=== PATIENT | female | born 1995 | race Caucasian/White ===

== ENCOUNTER 2019-04-29 16:26 | Emergency (ER) | payer SELFPAY | END 2019-04-29 19:15 | disposition home or self-care (01) | PROVIDERS: Family Provider Family Medicine | DX: O26.891 Other specified pregnancy related conditions, first trimester (principal); N93.9 Abnormal uterine and vaginal bleeding, unspecified; Z3A.01 Less than 8 weeks gestation of pregnancy; O99.331 Smoking (tobacco) complicating pregnancy, first trimester; F17.290 Nicotine dependence, other tobacco product, uncomplicated | CPT/HCPCS: 36415; 76815; 76817; 80053; 81003; 84702; 85025; 86901; 99281 ==

== ENCOUNTER 2019-08-29 15:55 | Outpatient (CLI) | payer MEDICAID, SELFPAY | END 2019-08-29 16:30 | disposition home or self-care (01) | LOC: OPOB 15:57 → OBGYN 16:42 | PROVIDERS: Family Provider Family Medicine; PCP Family Medicine; Visit Provider Family Medicine | DX: O36.8190 Decreased fetal movements, unspecified trimester, not applicable or unspecified (principal); Z3A.00 Weeks of gestation of pregnancy not specified | CPT/HCPCS: 99211 ==

== ENCOUNTER 2019-09-28 01:03 | Outpatient (CLI) | payer MEDICAID, SELFPAY ==
[2019-09-28 01:27] VITALS: BP 127/85; PULSE 109; RESP 18; TEMP 37.2
[2019-09-28 02:30] VITALS: BMI 45.3
[2019-09-28 03:20] LABS: Glucose Urine UA Norm (Normal); Protein Urine Trace (Negative); Urine Appearance Hazy (CLEAR); Urine Color Yellow (Yellow); pH Urine 6 (5-7)
[2019-09-28 03:21] LABS: Add Urine Microscopic? YES; Bilirubin Urine 1+ (NEGATIVE); Blood Urine Neg (Negative); Ketones Urine 1+ (Negative); Leukocyte Esterase Urine 1+ (Negative); Nitrate Urine Negative (Negative); Urobilinogen Urine 4 mg/dL (Negative)
[2019-09-28 03:22] LABS: RBC Urine 0-4 /hpf (0-2)
[2019-09-28 03:23] LABS: Amorphous Sediment Urine 1+; Bacteria Urine 2+; Squamous Epithelial Cell Urine 25-40 (0-5)
[2019-09-28 03:24] LABS: Add Urine Culture? No
[2019-09-28 04:09] VITALS: BP 127/64; PULSE 93; RESP 18; TEMP 36.6
== END 2019-09-28 04:24 | disposition home or self-care (01) ==
LOC: OPOB 01:05 → OBGYN 04:19
PROVIDERS: Family Provider Family Medicine; PCP Family Medicine; Visit Provider Family Medicine
DX: O26.899 Other specified pregnancy related conditions, unspecified trimester (principal); Z3A.00 Weeks of gestation of pregnancy not specified; R10.9 Unspecified abdominal pain
CPT/HCPCS: 81001; 99211

== ENCOUNTER 2019-10-24 17:57 | Outpatient (CLI) | payer MEDICAID, SELFPAY ==
[2019-10-24] VITALS (12 sets, daily range): BP systolic 0–145; BP diastolic 0–81; PULSE 93–120; RESP 16–18; TEMP 36.6; BMI 44.9
[2019-10-24] MEDS: acetaminophen 500 mg Tablet 1000 MG PO (19:38)
[2019-10-24] MEDS: promethazine 25 mg Tablet PO (19:39)
[2019-10-24 20:24] LABS: Specific Gravity, Urine 1.015 (1.005-1.030); Urine Appearance Hazy (CLEAR); Urine Color Yellow (Yellow); pH Urine 6 (5-7)
[2019-10-24 20:25] LABS: Add Urine Microscopic? YES; Bilirubin Urine Neg (NEGATIVE); Blood Urine 2+ (Negative); Glucose Urine UA Norm (Normal); Ketones Urine 2+ (Negative); Leukocyte Esterase Urine 2+ (Negative); Nitrate Urine Negative (Negative); Protein Urine Neg (Negative); RBC Urine 15-25 /hpf (0-2); Urobilinogen Urine 1 mg/dL (Negative)
[2019-10-24 20:26] LABS: Add Urine Culture? No; Bacteria Urine 2+; Squamous Epithelial Cell Urine 25-40 (0-5)
== END 2019-10-24 20:40 | disposition home or self-care (01) ==
LOC: OPOB 18:09 → OBGYN 20:33
PROVIDERS: Family Provider Family Medicine; PCP Family Medicine; Visit Provider Family Medicine
DX: O26.899 Other specified pregnancy related conditions, unspecified trimester (principal); Z3A.00 Weeks of gestation of pregnancy not specified; R11.0 Nausea
CPT/HCPCS: 59025; 81001; 99211; Q0169

== ENCOUNTER 2019-12-20 05:36 | Outpatient (CLI) | payer MEDICAID, SELFPAY ==
[2019-12-20] VITALS (9 sets, daily range): BP systolic 0–154; BP diastolic 0–90; PULSE 66–70; TEMP 36.7; BMI 49.9
--- NOTE | 2019-12-20 06:32 | PC.NURSE ---
[facility]
[2019-12-20 07:29] LABS: Add Urine Culture? No; Add Urine Microscopic? YES; Bacteria Urine 1+; Bilirubin Urine Neg (NEGATIVE); Blood Urine Neg (Negative); Glucose Urine UA Norm (Normal); Ketones Urine Negative (Negative); Leukocyte Esterase Urine Trace (Negative); Mucus Urine 1+; Nitrate Urine Negative (Negative); Protein Urine Neg (Negative); RBC Urine 0-4 /hpf (0-2); Specific Gravity, Urine 1.015 (1.005-1.030); Squamous Epithelial Cell Urine 25-40 (0-5); Urine Appearance SL Hazy (CLEAR); Urine Color Yellow (Yellow); Urobilinogen Urine 1 mg/dL (Negative); pH Urine 6.5 (5-7)
== END 2019-12-20 07:53 | disposition home or self-care (01) ==
LOC: OPOB 05:37 → OBGYN 05:38
PROVIDERS: Family Provider Family Medicine; PCP Family Medicine; Visit Provider Family Medicine
DX: O26.899 Other specified pregnancy related conditions, unspecified trimester (principal); Z3A.00 Weeks of gestation of pregnancy not specified; R10.9 Unspecified abdominal pain
CPT/HCPCS: 59025; 81001; 99211

== ENCOUNTER 2019-12-22 19:41 | Inpatient (IN) | payer MEDICAID, SELFPAY ==
[2019-12-22] VITALS (25 sets, daily range): BP systolic 0–158; BP diastolic 0–94; PULSE 66–92; RESP 16–18; TEMP 36.7–37; BMI 48.9
[2019-12-22 17:09] LABS: Nitrazine Paper, PH Negative
[2019-12-22] MEDS: morphine 4 mg/mL SDV 1 mL 8 MG IM (17:35)
[2019-12-22] MEDS: promethazine 25 mg/mL SDV 1 mL IM (17:36)
[2019-12-22 18:22] LABS: Urine Creatinine 205 mg/dL (28-217)
[2019-12-22 18:23] LABS: Urine Protein Random 41 mg/dL
[2019-12-22] MEDS: miSOPROStol 100 mcg tablet 25 MCG VAGINAL (20:41)
[2019-12-22] MEDS: lactated ringers 1,000 ML 999 ML IV (23:52)
[2019-12-22 23:56] LABS: Basophils % 0.2 %; Eosinophils % 0.2 %; Hemoglobin 12.2 g/dL (11.5-15.3); Lymphocytes # 1.3 10^3/uL (0.8-4.8); Lymphocytes % 10.8 %; Mean Corpuscular HGB Conc 31.3 g/dL (30.0-36.0); Mean Corpuscular Hemoglobin 25.5 pg (28.0-34.0); Mean Corpuscular Volume 81.6 fL (81-99); Mean Platelet Volume 13.6 fL (7.4-10.4); Monocytes # 0.5 10^3/uL (0.2-0.9); Monocytes % 4.2 %; Neutrophils # 10.47 10^3/uL (1.8-7.7); Neutrophils % 84.3 %; Nucleated Red Blood Cells % 0 %; Platelet Count 235 10^3/cmm (130-400); Red Blood Count 4.78 10^6/uL (4.1-5.3); Red Cell Distribution Width 14.6 % (12.1-15.1); White Blood Count 12.4 10^3/uL (4.0-10.0)
[2019-12-23] VITALS (120 sets, daily range): BP systolic 0–224; BP diastolic 0–124; PULSE 59–144; RESP 16–20; TEMP 36.8–37.2; O2SAT 90–99
[2019-12-23] MEDS: fentaNYL 50 mcg/mL INJ 2mL IVP (00:18)
--- NOTE | 2019-12-23 01:22 | ANES.PREANE2 ---
Pre-Anesthetic Assessment Pre-Anesthetic Assessment: Height/Weight: Height 1.63 m Weight 129.274 kg Temp Pulse Resp BP Pulse Ox 98.0 F 86 17 199/92 98 12/22/19 17:21 12/23/19 01:20 12/22/19 18:14 12/23/19 01:20 12/23/19 01:14 Preop Diagnosis: Labor Pain Proposed Procedure: MARQUES Was Beta Daniel taken within 24 hours: N/A Last Intake: 22:30 Exam: Pre-Anes Outpt Exam: alert, oriented x 3, clear to auscultation bilaterally and regular rate & rhythm Airway: Submandibular: WNL Cervical ROM: WNL MP: 2 Dentition: Full History/ROS: No significant history except as noted and No significant complaints Pulmonary: Pulmonary: None reported CV/HEM: CV/HEM: None reported : : None reported Hepatic: Hepatic: None reported GI: GI: GERD Comments: TUMS Metabolic: Metabolic: Morbid obesity Musc/skel: Musc/skel: None reported Neuropsych: Neuropsych: Anxiety Anesthetic Plan: ASA status: 2 Anesthesia: Anesthesia Evaluation and Regional (specify below) Risk of > 500 ml blood loss (7ml/kg in children): No Meds/Allergies Current Medications: Current Medications Generic Name Dose Route Start Last Admin Trade Name Freq PRN Reason Stop Dose Admin Fentanyl 25 - 100 mcg 12/22/19 19:43 12/23/19 00:18 Sublimaze IVP 25 mcg Q1H PRN Administration SEVERE PAIN Misoprostol 25 mcg 12/22/19 19:45 12/22/19 20:41 Cytotec VAGINAL 12/23/19 03:46 25 mcg Q4H DE Administration PFSH Anesthesia Female Reproductive History: : 1 Data Anesthesia CBC & Chem 7: 12/22/19 20:45 Other Labs: Laboratory Results - last 48 hr 12/22/19 12/22/19 17:30 20:45 WBC 12.4 H RBC 4.78 Hgb 12.2 Hct 39.0 MCV 81.6 MCH 25.5 L MCHC 31.3 RDW 14.6 Plt Count 235 MPV 13.6 H Neut % (Auto) 84.3 Lymph % (Auto) 10.8 [place] % (Auto) 4.2 Eos % (Auto) 0.2 Baso % (Auto) 0.2 Neut # (Auto) 10.47 H Lymph # (Auto) 1.3 [place] # (Auto) 0.5 Eos # (Auto) 0.0 Baso # (Auto) 0.0 Nucleated RBC % (auto) 0 Nucleated RBCs # 0.0 U Random Total Protein 41 Urine Creatinine 205 Protein/Creatinin Ratio 0.20 Cardiac Studies: No Data to Display
--- NOTE | 2019-12-23 01:24 | ANES.PROC ---
Anesthesia Procedures Procedure/Date: 12/23/19 Epidural: Time Out Performed: Yes Consents Signed: Procedure Consent Consent: requested by attending/covering physician, from patient, risks and benefits reviewed and patient agrees to proceed Lumbar Level: L3-L4 Epidural position: sitting Epidural procedure: sterile prep of area, 1% lidocaine to numb the area, 18 g needle, negative for paresthesia passed, test dose given, 1.5% xylocaine 1:200k epi, 0.2% Ropivacaine bolus ml, placed PCEA, no systemic response, sterile dressing applied, L.U.D. no apparent complications and 0.2% Ropiavacaine @ mls/hr Additional Comments: JUANY at 8cm. Ropiv 0.2% 6cc and Fent 100 mcg bolus. Pt tolerated well.
[2019-12-23] MEDS: miSOPROStol 100 mcg tablet 25 MCG VAGINAL (02:57)
[2019-12-23] MEDS: ondansetron 2 mg/ML SDV 2 mL 4 MG IVP (06:21)
[2019-12-23] MEDS: dextrose 5%-lactated ringers 1,000 ML 125 ML IV ×2 (07:47→15:51)
--- NOTE | 2019-12-23 07:49 | P.ANES_ITS ---
Anesthesia Procedures Procedure/Date: 12/23/19 Epidural: Time Out Performed: Yes Consents Signed: Procedure Consent and NPO Consent Consent: requested by attending/covering physician, from patient, patient agrees to proceed and emergency procedure Lumbar Level: L3-L4 Epidural position: sitting Epidural procedure: sterile prep of area, 1% lido damaso to numb the area, 18 g needle, negative for paresthesia passed, neg for paresthesia, test dose given, 1.5% xylocaine 1:200k epi (5 cc), placed PCEA, no systemic response, sterile dressing applied, L.U.D. no apparent complications and 0.2% Ropiavacaine @ mls/hr (13) Additional Comments: Patient's epidural stopped providing pain relief overnight. Severe pain with contractions with minimal improvement after bupi 0.25% 9 cc bolus (divided dose). Patient elected to replace epidural. JUANY at 5.5 cm, threaded to 11 cm. 5 cc test dose and 5 cc bolus from pump produced a decrease in pain of contraction from a 10 down to a 5 or 4 and patient reported return of warm feeling in her bottom and legs.
[2019-12-23] MEDS: oxytocin 30 UNIT/500 ML BAG IV (12:52)
[2019-12-23] MEDS: miSOPROStol 200 mcg Tablet 800 MCG PR (16:44)
--- NOTE | 2019-12-23 17:04 | PM.DELIVERY ---
Delivery Note: Date of delivery: December 23, 2019 Delivery: DELIVERY: The patient progressed to complete without difficulty. She delivered a female with a weight of 8 pounds 2 ounces with Apgars of 5, 7. The baby was delivered from the BEBA position. After the delivery of the head, the baby was noted to have shoulder dystocia. Saeed was performed. Suprapubic pressure was placed. I then performed a wood screw maneuver and was able to deliver the baby. Approximate time of shoulder dystocia was about a minute. The baby was then completely delivered and placed on the mother's abdomen. The cord was then immediately clamped and cut. There was a body cord x1. There was no meconium, initially, but the infant did have a bowel movement shortly after delivery. The placenta and 3 vessel cord were delivered intact shortly thereafter. The patient did have several gushes of blood, and I elected to place Cytotec 800 mcg per rectum. The perineum and vaginal vault were carefully examined. A posterior midline second-degree vaginal tear was noted. It was repaired in usual fashion with 3-0 Vicryl. Both the mother and the baby were in stable condition. A&P Assessment and plan (1) 40 weeks gestation of : As long as the baby does well, anticipate routine care and probable discharge tomorrow evening. Status: Acute (2) Shoulder dystocia, delivered: Status: Acute (3) Vaginal delivery: Status: Acute Coding Level of Care Code Acute Dimmer Board Operator for Chg Fwd Diagnoses 40 weeks gestation of Z3A.40 Shoulder dystocia, delivered O66.0 Vaginal delivery O80
[2019-12-23] MEDS: docusate sodium 100 mg Capsule PO (18:06)
[2019-12-23] MEDS: HYDROcodone-acetaminophen 5-325 mg Tablet PO (18:06)
[2019-12-23] MEDS: lanolin oint 7 gm 1 APPLIC TOPICAL (18:07)
[2019-12-23] MEDS: benzocaine-menthol 78 gm Canister 1 SPRAY TOPICAL (18:07)
--- NOTE | 2019-12-23 18:50 | PC.NURSE ---
Pt and all belongings transferred to room 204-2 per wheelchair.
[2019-12-24 00:19] VITALS: BP 148/91; PULSE 85; RESP 16
[2019-12-24 02:19] VITALS: BP 134/90; PULSE 69; RESP 18; O2SAT 100
[2019-12-24] MEDS: HYDROcodone-acetaminophen 5-325 mg Tablet PO (02:38)
[2019-12-24 05:33] LABS: Hematocrit 34.8 % (37.0-47.0); Hemoglobin 11.1 g/dL (11.5-15.3); Mean Corpuscular HGB Conc 31.9 g/dL (30.0-36.0); Mean Corpuscular Hemoglobin 26.4 pg (28.0-34.0); Mean Corpuscular Volume 82.9 fL (81-99); Mean Platelet Volume 13.3 fL (7.4-10.4); Platelet Count 209 10^3/cmm (130-400); Red Cell Distribution Width 14.9 % (12.1-15.1); White Blood Count 15.5 10^3/uL (4.0-10.0)
--- NOTE | 2019-12-24 06:49 | P.DS_ITS ---
Discharge Providers CHIEF CLERK SHELTER Date of Admission: 12/22/19 19:41 Date of Discharge: 12/24/19 Attending Provider at Admission: Ranjith Garcia MD Attending Provider at Discharge: Ranjith Garcia MD Primary Care Provider: Jesusita Fontanez MD Diagnoses at Discharge Discharge Diagnosis (1) 40 weeks gestation of : Status: Acute (2) Shoulder dystocia, delivered: Status: Acute (3) Vaginal delivery: Status: Acute Reason for Visit Reason for Visit: Abdominal pain Hospital Course Discharge Summary: The patient is a 24-year-old 1 para female who presented to the hospital in active labor. She progressed to complete, and had a vaginal delivery of an . Shoulder dystocia did occur. But the baby and mother did fine. she has done well. Her pain is been well controlled. Her bleeding been within normal limits. She has breast-fed well. There have been no concerns. Information Peripartum Data: Infant Delivery Method: Vaginal Physical Exam Narrative: EXAM NARRATIVE: The patient is alert. She appears comfortable. Her heart has a regular rate and rhythm with no murmurs appreciated. Lungs are clear to auscultation bilaterally. Her fundus is firm and below the umbilicus. Urinary Catheter Management^: Darnell: Cath Placed During This Visit: yes, but has since been removed by the nurse Reason for Continuing Indwelling Catheter: Decision to DC Catheter Urinary Catheter Date of Insertion: 12/23/19 Urinary Catheter Time of Insertion: 05:00 Date Urinary Catheter Removed: 12/23/19 Time Urinary Catheter Discontinued: 16:00 Discharge Data Data Completed and Pending: Labs from last 24 hours 12/24/19 05:00 WBC 15.5 H RBC 4.20 Hgb 11.1 L Hct 34.8 L MCV 82.9 MCH 26.4 L MCHC 31.9 RDW 14.9 Plt Count 209 MPV 13.3 H Vitals: Last Vital Signs Temp 98.3 F 12/23/19 22:09 Pulse 69 12/24/19 02:19 Resp 18 12/24/19 02:19 BP 134/90 12/24/19 02:19 Pulse Ox 100 12/24/19 02:19 Discharge Plan Discharge Patient Disposition: Home Condition: Stable Prescriptions: New ibuprofen 800 mg Tablet 800 mg PO TID Qty: 30 RF: 0 Continued Vitamin 1 tab PO DAILY RF: 0 Discharge Orders: Discharge Order (Routine); Ordered 12/24/19 Ordered By: Ranjith Garcia Referrals: Ranjith Garcia MD [Family Provider] - 6 Weeks Discharge Diet: Usual diet Discharge Activity: Limit activity as instructed Discharge Attestations CHIEF CLERK SHELTER Time Spent in Discharge Care*: less than 30 min Coding Level of Care Code Acute Box Spinner for Chg Fwd Diagnoses 40 weeks gestation of Z3A.40 Shoulder dystocia, delivered O66.0 Vaginal delivery O80
--- NOTE | 2019-12-24 08:29 | PC.NURSE ---
Prescription for motrin called into [facility] pharmacy at [phone]
[2019-12-24] MEDS: docusate sodium 100 mg Capsule PO (08:49)
[2019-12-24] MEDS: prenatal vitamin Capsule 1 CAP PO (08:49)
[2019-12-24 08:56] VITALS: BP 133/78; PULSE 72; RESP 13; TEMP 36.5; O2SAT 97
--- NOTE | 2019-12-24 12:13 | ANE.PACU2 ---
Inpatient post-anesthesia follow up: Airway intact: Yes Vital signs: Temperature 97.7 F Pulse Rate 72 Respiratory Rate 13 Blood Pressure 133/78 Pulse Oximetry 97 Oxygen Delivery Me thod Room Air Oxygen Flow Rate Fraction of Inspir ed Oxygen Hydration adequate: Yes Nausea and vomiting: No Pain level: 1 Mental status: Baseline Additional Comments: No signs of infection at epidural site, no hedaches, weakness, or numbness
[2019-12-24] MEDS: measles,mumps,rubella pf Vial (w/diluent) 0.5 ML SUBCUT (13:26)
[2019-12-24 17:00] VITALS: BP 131/86; PULSE 71; RESP 16; TEMP 36.4; O2SAT 97
== END 2019-12-24 17:46 | disposition home or self-care (01) | DRG 807 ==
LOC: OPOB 19:41 → OBGYN 19:42
PROVIDERS: Admitting Provider Family Medicine; Family Provider Family Medicine; PCP Family Medicine; Visit Provider Family Medicine
DX: O66.0 Obstructed labor due to shoulder dystocia (principal); Z37.0 Single live birth; O69.2XX0 Labor and delivery complicated by other cord entanglement, with compression, not applicable or unspecified; O99.344 Other mental disorders complicating childbirth; F41.8 Other specified anxiety disorders; Z3A.40 40 weeks gestation of pregnancy; O75.89 Other specified complications of labor and delivery; K59.00 Constipation, unspecified; M54.31 Sciatica, right side; F43.20 Adjustment disorder, unspecified; Z87.440 Personal history of urinary (tract) infections
CPT/HCPCS: 12345; 36415; 51702; 59025; 59409; 82570; 83986; 84156; 85025; 85027; 90707; 96372; 96374; 96375; 98960; 99211; J2270; J2405; J2550; J2795; J3010

== ENCOUNTER 2020-11-10 19:39 | Emergency (ER) | payer MEDICAID, SELFPAY ==
[2020-11-10 19:59] VITALS: BP 147/80; PULSE 123; RESP 18; TEMP 36.7; O2SAT 96; BMI 44.9
--- NOTE | 2020-11-10 20:11 | ED_ITS ---
HPI - Headache General: Chief Complaint: Headache Stated Complaint: Head Ache Time Seen by Provider: 11/10/20 20:10 History of Present Illness: HPI Narrative: 25-year-old female comes in with complaints of a frontal sinus headache for the last 3 to 5 days. Patient reports she started taking medication for sinuses with minimal to no relief of discomfort. Patient feels that it is very similar to her usual sinus headache. Patient is concerned due to being exposed to Covid 19. 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 Patient does report some chills but her main symptoms are sinus headache and some mild nasal drainage. Review of Systems General: Reports: 10 or more systems reviewed and unremarkable except in HPI and below ENMT: Reports: nasal discharge and post nasal drip Neuro: Reports: headache(s) [facility] Female Reproductive History: Date of last menstrual period: 10/26/20 Physical Exam Const: COMMON NORMALS: no acute distress and patient oriented x3 GENERAL APPEARANCE: cooperative HENMT: COMMON NORMALS: normocephalic and TM's normal bilaterally HEAD & SCALP: normal to inspection and normocephalic NOSE: Nasal discharge present TYMPANIC MEMBRANE: TM's normal bilaterally MOUTH: Normal oral and palatal mucosa present THROAT: posterior oropharynx abnormal erythema Eye: GENERAL EYE: appearance normal, both eyes and all related structures Neck/C-Spine: COMMON NORMALS: full ROM Lymph: LYMPHATIC: no lymphadenopathy noted Chest: COMMONS NORMALS: normal inspection of the chest Resp: COMMON NORMALS: normal respiratory effort EFFORT & INSPECTION: Yes able to speak in complete sentences Cardio: COMMON NORMALS: regular rate and regular rhythm RATE: regular rate RHYTHM: regular rhythm GI: COMMON NORMALS: non-tender : COMMON NORMALS: Yes no CVA tenderness BLADDER/KIDNEY EXAM: Yes no CVA tenderness Back/Pelvis: COMMON NORMALS: no CVA tenderness and thoracic and lumbar spine normal to inspection Extremity: COMMON NORMALS: normal to inspection Neuro: COMMON NORMALS: patient oriented x3 and moves all extremities Psych: COMMON NORMALS: mental status grossly normal and cooperative Skin: COMMON NORMALS: no rashes or lesions noted GENERAL SKIN EXAM: no rashes or lesions noted Course Vital Signs: Vital signs: Vital Signs Temperature 98.1 F 11/10/20 19:59 Pulse Rate 123 H 07/13/21 19:59 Respiratory Rate 18 11/10/20 19:59 Blood Pressure 147/80 11/10/20 19:59 Pulse Oximetry 96 11/10/20 19:59 MDM - Headache MDM Narrative: Medical decision making narrative: Patient comes in today for complaints of frontal sinus headache. 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 On exam patient has frontal sinus tenderness. Bilateral TMs are slightly bulging with dull. Patient does have some nasal congestion and posterior nasal drainage. Respirations are even lungs are clear to auscultation. Differential diagnosis includes COVID-19, sinusitis, allergic rhinitis. COVID-19 test was negative. Reviewed exam with patient recommendation to treat for sinus infection with azithromycin and Flonase. Patient reported understanding agreed to plan. Lab Data: Labs: Lab Results 11/10/20 Range/Units 20:25 SARS-CoV-2 Ag (Rap id) Negative (Negative) Discharge Plan Discharge Patient Disposition: Home Clinical Impression: Exposure to confirmed case of COVID-19 Sinusitis Qualifiers: Sinusitis location: frontal Chronicity: acute Recurrence: non-recurrent Qualified Code(s): J01.10 - Acute frontal sinusitis, unspecified Condition: Stable Prescriptions: New Flonase Allergy Relief 50 mcg/actuation spray,suspension 1 spray intranasal BID Qty: 16 RF: 0 azithromycin 250 mg tablet See Rx Instructions .ROUTE .COMPLEX Qty: 6 RF: 0 No Action ibuprofen 800 mg Tablet 800 mg PO TID Qty: 30 RF: 0 acetaminophen 325 mg Tablet 325 - 650 mg PO Q4H PRN (Reason: PAIN/FEVER) RF: 0 cetirizine 10 mg Tablet 10 mg PO DAILY PRN (Reason: Allergy Symptoms) RF: 0 Discharge Orders: Discharge ED (Routine); Ordered 11/10/20 Ordered By: Pavan Hayden Referrals: Jesusita Fontanez MD [Primary Care Provider] - Ranjith Garcia MD [Family Provider] - Discharge Diet: Usual diet Discharge Activity: Increase activity as tolerated Patient Instructions: Sinusitis (ED), Opioid Safety Activity Restrictions/Additional Instructions: Home and rest. Drink plenty of fluids. Take medications as directed. Use acetaminophen and ibuprofen for pain. Follow-up with primary care as needed. Return to the ER for new concerns. Coding Level of Care Code ED Java Front End Web Developer for Chg Fwd Exam Comprehensive
[2020-11-10 21:29] LABS: SARS Covid-2 Antigen Negative (Negative)
[2020-11-10 22:31] VITALS: BP 105/81; PULSE 98; RESP 18; O2SAT 98
[2020-11-11 13:18] LABS: Coronavirus Test Green County Not Detected
--- NOTE | 2020-11-12 08:23 | PC.NURSE ---
unable to reach pt to give COVID results. sent letter to contact ER to receive them
== END 2020-11-10 22:20 | disposition home or self-care (01) ==
PROVIDERS: Emergency Provider Nurse Practitioner Family; Family Provider Family Medicine; PCP Family Medicine
DX: J01.10 Acute frontal sinusitis, unspecified (principal); U07.1 COVID-19
CPT/HCPCS: 87426; 87635; 99282; 99283

== ENCOUNTER 2021-03-10 12:08 | Emergency (ER) | payer MEDICAID, SELFPAY ==
[2021-03-10 12:23] VITALS: BP 190/155; PULSE 107; RESP 18; TEMP 36.4; O2SAT 97; BMI 46.3
--- NOTE | 2021-03-10 14:45 | ED.C_ITS ---
HPI - Psych General: Chief Complaint: Psychiatric Symptoms Stated Complaint: MHE Time Seen by Provider: 03/10/21 12:40 History of Present Illness: HPI Narrative: 25-year-old female presents emergency room with very emotions. She said she has extreme highs and loss of time she is very despondent difficult time eating and drinking or taking care of her child she is made arrangements and she has these episodes for others help her with her child some friends and family on other times she is very energetic and able to do a lot of different things. She has been evaluated at [facility] but was not able to get in after intake until May for 7 particular difficulty today and wanted to see if something to get started for this prior to May 04. MD complaint: feels depressed Onset (ago): month(s) Duration: intermittent and changing over time Relieving factors: none Exacerbating factors: none Associated psychiatric symptoms: depression Associated symptoms: Reports depression; Deny auditory hallucinations, visual hallucinations, delusions, homicidal ideation, suicidal ideation or racing thoughts Treatments prior to arrival: none Review of Systems Const: Denies: fever(s), chills, body aches, change in appetite, fatigue or malaise ENMT: Denies: throat pain, ear or mastoid pain, nasal discharge or nasal congestion Card: Denies: chest pain, edema, dyspnea on exertion or orthopnea Resp: Denies: dyspnea, productive cough or non-productive cough GI: Denies: abdominal pain, nausea, vomiting, hematemesis, coffee ground emesis, diarrhea, constipation, bloating, hematochezia or melena : Denies: flank pain, difficulty voiding, dysuria, urinary frequency or urinary urgency Skin/Breast: Denies: rash or pruritus Psych: Reports: depression; Denies: visual hallucinations, auditory hallucinations, suicidal ideation or homicidal ideation [facility] PFSH: Medical History Psychiatric care Female Reproductive History: Date of last menstrual period: 10/26/20 Physical Exam Const: COMMON NORMALS: no acute distress GENERAL APPEARANCE: cooperative and comfortable ORIENTATION/CONSCIOUSNESS: Yes awake, Yes oriented to person, Yes oriented to place and Yes oriented to time HENMT: COMMON NORMALS: normocephalic, atraumatic and hearing grossly normal bilaterally HEAD & SCALP: normocephalic and atraumatic Eye: COMMON NORMALS: Equal, round and reactive pupils present, EOMs intact bilaterally, conjunctivae normal and no scleral icterus CONJUNCTIVA: Yes conjunctivae normal PUPIL: Yes Equal, round and reactive pupils present Neck/C-Spine: COMMON NORMALS: full ROM, no lymphadenopathy, supple and no JVD Lymph: LYMPHATIC: no lymphadenopathy noted and no lymphedema noted Resp: COMMON NORMALS: normal respiratory effort, No retractions, No use of accessory muscles and clear to auscultation bilaterally AUSCULTATION: clear to auscultation bilaterally Cardio: COMMON NORMALS: no JVD, regular rate, regular rhythm and No murmurs present (Cardio) RATE: regular rate RHYTHM: regular rhythm GI: COMMON NORMALS: Soft to palpation and No hepatosplenomegaly present AUSCULTATION: Yes normoactive bowel sounds PALPATION: Yes Soft to palpation, No Tenderness to palpation present (GI), No Guarding due to palpation present (GI) and Yes No hepatosplenomegaly present Extremity: COMMON NORMALS: normal to inspection, capillary refill normal, no clubbing, cyanosis or edema, no calf tenderness and no pedal edema Neuro: SENSORIUM/ORIENTATION: Yes oriented to person, Yes oriented to place and Yes oriented to time Psych: THOUGHT CONTENT: No delusions Skin: COMMON NORMALS: no rashes or lesions noted GENERAL SKIN EXAM: no rashes or lesions noted Course Vital Signs: Vital signs: Vital Signs Temperature 97.6 F 03/10/21 12:23 Pulse Rate 107 H 03/10/21 12:23 Respiratory Rate 18 03/10/21 12:23 Blood Pressure 190/155 03/10/21 12:23 Pulse Oximetry 97 03/10/21 12:23 MDM - Psych MDM Narrative: Medical decision making narrative: Patient's follow-up visit with [facility] after intake is not until early May. Discussed with Dr. Andres who is on-call. He suggested in cases like this would recommend starting medication such as a low-dose SSRI along with bupropion. See medications below. Discharge patient home patient repeatedly denied any suicidal or homicidal ideation. Patient has made arrangements for assistance with childcare when she feels like she is overwhelmed she uses that as an outlet. She has been able to take care of her child without any difficulty for the most part. Encourage patient she is actually managing things very well she is able to sense when she is about to get overwhelmed and has a way to avoid things from progressing beyond her control encourage her to continue to use those strategies. Discharge Plan Discharge Patient Disposition: Home Clinical Impression: Depression, Anxiety Condition: Stable Prescriptions: New Lexapro 10 mg tablet 20 mg PO DAILY Qty: 30 RF: 0 buspirone 15 mg tablet 15 mg PO BID Qty: 60 RF: 1 No Action ibuprofen 800 mg Tablet 800 mg PO TID Qty: 30 RF: 0 acetaminophen 325 mg Tablet 325 - 650 mg PO Q4H PRN (Reason: PAIN/FEVER) RF: 0 cetirizine 10 mg Tablet 10 mg PO DAILY PRN (Reason: Allergy Symptoms) RF: 0 Flonase Allergy Relief 50 mcg/actuation spray,suspension 1 spray intranasal BID Qty: 16 RF: 0 azithromycin 250 mg tablet See Rx Instructions .ROUTE .COMPLEX Qty: 6 RF: 0 Discharge Orders: Discharge ED (Routine); Ordered 03/10/21 Ordered By: Han Wooten Referrals: Ranjith Garcia MD [Primary Care Provider] - Discharge Diet: Usual diet Discharge Activity: Increase activity as tolerated Patient Instructions: Opioid Safety Coding Level of Care Code ED Disease Case Manager for Rosanna Robertson
== END 2021-03-10 14:50 | disposition home or self-care (01) ==
PROVIDERS: Emergency Provider Family Medicine; PCP Family Medicine
DX: F32.A Depression, unspecified (principal); F41.9 Anxiety disorder, unspecified
CPT/HCPCS: 99283

== ENCOUNTER 2021-03-30 16:05 | Emergency (ER) | payer MEDICAID, SELFPAY ==
[2021-03-30] VITALS (7 sets, daily range): BP systolic 124–145; BP diastolic 71–97; PULSE 90–138; RESP 16–20; TEMP 37.6; O2SAT 97–98; BMI 45.6
[2021-03-30 17:03] LABS: Basophils % 0.2 %; Eosinophils # 0.1 10^3/uL (0.0-0.8); Eosinophils % 0.6 %; Hemoglobin 14.3 g/dL (11.5-15.3); Lymphocytes # 1.8 10^3/uL (0.8-4.8); Lymphocytes % 16.8 %; Mean Corpuscular HGB Conc 32.5 g/dL (30.0-36.0); Mean Corpuscular Hemoglobin 25.1 pg (28.0-34.0); Mean Corpuscular Volume 77.3 fl (81-99); Mean Platelet Volume 10.9 fL (7.4-10.4); Monocytes # 0.6 10^3/uL (0.2-0.9); Monocytes % 5.2 %; Neutrophils # 8.39 10^3/uL (1.8-7.7); Neutrophils % 76.8 %; Nucleated Red Blood Cells % 0 %; Platelet Count 328 10^3/cmm (130-400); Red Blood Count 5.69 10^6/uL (4.1-5.3); Red Cell Distribution Width 15.3 % (12.1-15.1); White Blood Count 10.9 10^3/uL (4.0-10.0)
--- NOTE | 2021-03-30 17:24 | XRR_ITS ---
PROCEDURE INFORMATION: Exam: XR Chest Exam date and time: 03/30/2021 5:24 PM Age: 25 years old Clinical indication: Cough and shortness of breath and other: N/v; Additional info: Dyspnea TECHNIQUE: Imaging protocol: XR of the chest. Views: 1 view. COMPARISON: CR Chest 2 views* [id number] 03/13/2018 11:53 PM FINDINGS: Lungs: Unremarkable. No consolidation. Pleural spaces: Unremarkable. No pleural effusion. No pneumothorax. Heart/Mediastinum: Unremarkable. No cardiomegaly. Bones/joints: Unremarkable. XR/XR chest 1V portable [id number] IMPRESSION: No acute findings. Radiation Dose CTDIVOL = (mGy): DLP = (mGy-cm)
--- NOTE | 2021-03-30 17:24 | W.ED.GENADLT ---
HPI - General Adult General: Chief complaint: Abdominal Pain Stated complaint: PULSE IS 137/SENT FROM [facility] Time Seen by Provider: 03/30/21 16:59 History of Present Illness: HPI narrative: Patient is a 25-year-old with a history of psychiatric issues who presents emergency room with nausea/vomiting, diarrhea x1 day in the setting of cough generalized weakness and feeling unwell. Patient tells me that for the last month, he has had cough and shortness of breath. However since a day ago, patient has had profuse diarrhea and decreased p.o. intake. Patient complains of diffuse abdominal pain. Reports subjective fever at home. She has not been able to hold anything down. Earlier today, patient went to the walk-in clinic was found to be tachycardic to the 120s and was told to go to the emergency room for further evaluation. Patient denies any new vaginal discharge vaginal bleeding. Patient has mild dysuria. Onset: 1 day ago Duration:1 day Location:home Severity:modeate Review of Systems Narrative: Constitutional: +subjective fever, no chills. HEENT: No vision changes CV: No chest pain, no palpitations PULM: +cough, +dyspnea. GI: +diffuse abdominal pain, +N/+V/+D. : No dysuria MSKEL: No muscle pain SKIN: No new rashes, no lesions. NEURO: No headache, no focal weakness. HEME: No visible bruises PSYCH: Normal mood PFS ED PFSH: Medical History Psychiatric care Female Reproductive History: Date of last menstrual period: 02/27/21 Physical Exam Narrative: EXAM NARRATIVE: Head: Atraumatic Eyes: PERRL, conjunctiva without injection ENT: Mucous membrane dry NECK: Supple, ROM intact LUNGS: LCTAB, no crackles/rhonchi CV: +Sinus tachycarida ABDOMEN: Soft, diffuse TTP. NO guarding rebound, guarding, rigidity. No CVA tenderness to percussion. Neg Anders/Neg McBurney's point tenderness, no suprabupic tenderness to palpation. EXTREMITY: Normal ROM SKIN: No rash or erythema NEURO: Awake and alert, no focal motor deficits PSYCH: Normal mood and affect Course Vital Signs: Vital signs: Vital Signs Temperature 99.7 F H 03/30/21 16:27 Pulse Rate 90 11/30/21 20:00 Respiratory Rate 20 H 03/30/21 20:00 Blood Pressure 131/89 03/30/21 20:00 Pulse Oximetry 97 03/30/21 20:00 MDM - General Adult MDM Narrative: Medical decision making narrative: 25-year-old female presents the emergency room for evaluation of nausea vomiting diarrhea x1 day in the setting of cough and generalized weakness. On exam, patient appears to be dry and tachycardic to the 120s. She has diffuse abdominal tenderness to palpation without any guarding or rebound tenderness on exam. Gien finding of diarrhea in the setting of nausea vomiting, this is likely gastroenteritis. White count of 10.9. Patient received GI cocktail is not able to tolerate p.o. Patient received 3 L of fluids with significant improvement in tachycardia. Given improving vitals and decreasing pain and successful trial of GI cocktail, no suspicion for other acute intra-abdominal pathology including SBO, biliary pathology, appendicitis, diverticulitis, or other emergent condition requiring surgery. Considered appendicitis however unlikely at this time given lack of signs and sx's to suggest appendicitis as etiology. Pt counseled that appendicitis may later develop and given appendicitis precautions and instructed to return if any development of RLQ tenderness, worsening or continued abdominal pain, or any fevers, chills, nausea, vomiting, or any other concerning signs or symptoms. Rx maalox/pepcid PRN dyspepsia, zofran PRN nausea Disposition: Discharge. Patient counseled regarding diagnostic impression, treatment plan. Patient given ED strict return precautions to return for continuation, worsening, or development of new symptoms. Instructed to f/u w/ PCP regarding symptoms today. Patient verbalized understanding. Lab Data: Labs: Lab Results 03/30/21 03/30/21 03/30/21 16:41 16:44 16:44 WBC 10.9 10^3/uL H 10 ^3/uL (4.0-10.0) RBC 5.69 10^6/uL H 10 ^6/uL (4.1-5.3) Hgb 14.3 g/dL g/dL (11.5-15.3) Hct 44.0 % % (37.0-47.0) MCV 77.3 fl L fl (81-99) MCH 25.1 pg L pg (28.0-34.0) MCHC 32.5 g/dL g/dL (30.0-36.0) RDW 15.3 % H % (12.1-15.1) Plt Count 328 10^3/cmm 10^3 /cmm (130-400) MPV 10.9 fL H fL (7.4-10.4) Neut % (Auto) 76.8 % % Lymph % (Auto) 16.8 % % Greenlee % (Auto) 5.2 % % Eos % (Auto) 0.6 % % Baso % (Auto) 0.2 % % Neut # (Auto) 8.39 10^3/uL H 10 ^3/uL (1.8-7.7) Lymph # (Auto) 1.8 10^3/uL 10^3/ uL (0.8-4.8) Greenlee # (Auto) 0.6 10^3/uL 10^3/ uL (0.2-0.9) Eos # (Auto) 0.1 10^3/uL 10^3/ uL (0.0-0.8) Baso # (Auto) 0.0 10^3/uL 10^3/ uL (0.0-0.1) Nucleated RBC % (a uto) 0 % % Nucleated RBCs # 0.0 /100WBC /100W BC PT INR APTT Sodium 139 mmol/L mmol/L (136-145) Potassium 3.8 mmol/L mmol/L (3.5-5.1) Chloride 105 mmol/L mmol/L (98-107) Carbon Dioxide 23 mmol/L mmol/L (22-29) Anion Gap 14.8 (5-19) BUN 12 mg/dL mg/dL (6-20) Creatinine 0.4 mg/dL L mg/dL (0.5-0.9) GFR Calculation 197.8 mL/min H mL /min (90-130) Glucose 77 mg/dL mg/dL (65-115) Calculated Osmolal ity 287 mOsm/kg mOsm/ kg (285-295) Calcium 8.7 mg/dL mg/dL (8.5-10.5) Total Bilirubin 0.5 mg/dL mg/dL (0.15-1.2) AST 12 U/L U/L (0-32) ALT 24 U/L U/L (0-33) Alkaline Phosphata se 116 IU/L H IU/L (35-105) Total Protein 7.3 g/dL g/dL (6.6-8.7) Albumin 4.1 g/dL g/dL (3.5-5.2) Globulin 3.2 g/dL g/dL (1.3-4.6) HCG, Qual Urine Color Yellow (Yellow) Urine Appearance Clear (CLEAR) Urine pH 6.5 (5-7) Ur Specific Gravit y 1.010 (1.005-1.030) Urine Protein Neg (Negative) Urine Glucose (UA) Norm (Normal) Urine Ketones Negative (Negative) Urine Blood Neg (Negative) Urine Nitrate Negative (Negative) Urine Bilirubin Neg (Negative) Urine Urobilinogen Norm mg/dL mg/dL (Negative) Ur Leukocyte Karuna ase Negative (Negative) Influenza Type A A g Influenza Type B A g SARS-CoV-2 Ag (Rap id) 03/30/21 03/30/21 03/30/21 16:44 16:44 17:40 WBC RBC Hgb Hct MCV MCH MCHC RDW Plt Count MPV Neut % (Auto) Lymph % (Auto) Greenlee % (Auto) Eos % (Auto) Baso % (Auto) Neut # (Auto) Lymph # (Auto) Greenlee # (Auto) Eos # (Auto) Baso # (Auto) Nucleated RBC % (a uto) Nucleated RBCs # PT 13.50 SECONDS SEC ONDS (12.1-14.9) INR 1.00 (0.8-1.2) APTT 29.8 SECONDS SECO NDS (23.9-36.7) Sodium Potassium Chloride Carbon Dioxide Anion Gap BUN Creatinine GFR Calculation Glucose Calculated Osmolal ity Calcium Total Bilirubin AST ALT Alkaline Phosphata se Total Protein Albumin Globulin HCG, Qual Negative (Negative) Urine Color Urine Appearance Urine pH Ur Specific Gravit y Urine Protein Urine Glucose (UA) Urine Ketones Urine Blood Urine Nitrate Urine Bilirubin Urine Urobilinogen Ur Leukocyte Karuna ase Influenza Type A A g Negative (Negative) Influenza Type B A g Negative (Negative) SARS-CoV-2 Ag (Rap id) 03/30/21 17:40 WBC RBC Hgb Hct MCV MCH MCHC RDW Plt Count MPV Neut % (Auto) Lymph % (Auto) Greenlee % (Auto) Eos % (Auto) Baso % (Auto) Neut # (Auto) Lymph # (Auto) Greenlee # (Auto) Eos # (Auto) Baso # (Auto) Nucleated RBC % (a uto) Nucleated RBCs # PT INR APTT Sodium Potassium Chloride Carbon Dioxide Anion Gap BUN Creatinine GFR Calculation Glucose Calculated Osmolal ity Calcium Total Bilirubin AST ALT Alkaline Phosphata se Total Protein Albumin Globulin HCG, Qual Urine Color Urine Appearance Urine pH Ur Specific Gravit y Urine Protein Urine Glucose (UA) Urine Ketones Urine Blood Urine Nitrate Urine Bilirubin Urine Urobilinogen Ur Leukocyte Karuna ase Influenza Type A A g Influenza Type B A g SARS-CoV-2 Ag (Rap id) Negative (Negative) Imaging Data^: Other Imaging: Radiologist's impression: [employer] [id number] ReportSigned Patient: Nu Goldman #: [id number]: [id number]#:[id number]/Sex: 25 / FADM Date: 03/30/21Loc: ERRoo/Bed:Attending Dr: Ordering Provider/Ordering MD: Dav Branham MD Date of Service: 03/30/21 Procedure(s): XR chest 1V portable [id number] Accession Number(s): [id number] Report Number: [id number] PROCEDURE INFORMATION: Exam: XR Chest Exam date and time: 03/30/2021 5:24 PM Age: 25 years old Clinical indication: Cough and shortness of breath and other: N/v; Additional info: Dyspnea TECHNIQUE: Imaging protocol: XR of the chest. Views: 1 view. COMPARISON: CR Chest 2 views* [id number] 03/13/2018 11:53 PM FINDINGS: Lungs: Unremarkable. No consolidation. Pleural spaces: Unremarkable. No pleural effusion. No pneumothorax. Heart/Mediastinum: Unremarkable. No cardiomegaly. Bones/joints: Unremarkable. XR/XR chest 1V portable [id number] IMPRESSION: No acute findings. Radiation Dose CTDIVOL = (mGy): DLP = (mGy-cm) Dictated By:Yonathan Luu MDSigned By:Yonathan Luu MDSigned Date/Time:03/30/21 1753DD/ 1724 Discharge Plan Discharge Patient Disposition: Home Clinical Impression: Nausea & vomiting, Diarrhea, Cough, Generalized weakness Condition: Stable Prescriptions: New acetaminophen 500 mg tablet 500 mg PO Q6H PRN (Reason: pain) 5 Days Qty: 20 RF: 0 Pepcid 20 mg tablet 20 mg PO BID PRN (Reason: abdominal pain) 10 Days Qty: 20 RF: 0 Maalox Advanced 1,000-60 mg tablet,chewable 1 tab PO TID PRN (Reason: abdominal pain) 7 Days Qty: 21 RF: 0 Zofran 4 mg tablet 4 mg PO TID PRN (Reason: nausea and vomiting) 4 Days Qty: 12 RF: 0 No Action ibuprofen 800 mg Tablet 800 mg PO TID Qty: 30 RF: 0 acetaminophen 325 mg Tablet 325 - 650 mg PO Q4H PRN (Reason: PAIN/FEVER) RF: 0 cetirizine 10 mg Tablet 10 mg PO DAILY PRN (Reason: Allergy Symptoms) RF: 0 Flonase Allergy Relief 50 mcg/actuation spray,suspension 1 spray intranasal BID Qty: 16 RF: 0 azithromycin 250 mg tablet See Rx Instructions .ROUTE .COMPLEX Qty: 6 RF: 0 Lexapro 10 mg tablet 20 mg PO DAILY Qty: 30 RF: 0 buspirone 15 mg tablet 15 mg PO BID Qty: 60 RF: 1 Discharge Orders: Discharge ED (Routine); Ordered 03/30/21 Ordered By: Dav Branham Referrals: Ranjith Garcia MD [Primary Care Provider] - Discharge Diet: Advance as tolerated Discharge Activity: Increase activity as tolerated Patient Instructions: Acute Nausea and Vomiting (ED) Activity Restrictions/Additional Instructions: Please come back if you have any worsening abdominal pain, fever or chills, nausea or vomiting, diarrhea, blood in the stool, inability hold down liquid or solids, or any new concerning complaints. Stand Alone Forms: Work/School Release Coding Level of Care Code ED [employer] Handler for Rosanna Robertson
[2021-03-30 17:48] LABS: Alanine Aminotransferase 24 U/L (0-33); Albumin Level 4.1 g/dL (3.5-5.2); Alkaline Phosphatase 116 IU/L (35-105); Anion Gap 14.8 (5-19); Aspartate Amino Transferase 12 U/L (0-32); Blood Urea Nitrogen 12 mg/dL (6-20); Calcium 8.7 mg/dL (8.5-10.5); Carbon Dioxide 23 mmol/L (22-29); Chloride 105 mmol/L (98-107); Globulin 3.2 g/dL (1.3-4.6); Glomerular Filtration Rate 197.8 mL/min (90-130); Glucose 77 mg/dL (65-115); Osmolality Calculated 287 mOsm/kg (285-295); Potassium 3.8 mmol/L (3.5-5.1); Sodium 139 mmol/L (136-145); Total Bilirubin 0.5 mg/dL (0.15-1.2); Total Protein 7.3 g/dL (6.6-8.7)
[2021-03-30] MEDS: sodium chloride 0.9% 1,000 ML 999 ML IV ×2 (18:07→18:11)
[2021-03-30] MEDS: acetaminophen 500 mg Tablet 1000 MG PO (18:09)
[2021-03-30] MEDS: ondansetron 2 mg/ML SDV 2 mL 4 MG IVP (18:10)
[2021-03-30] MEDS: lidocaine 2% viscous 15 ML, aluminum-mag hydrox-simethicon 30 ML, sucralfate oral liq 1 GM PO (18:11)
[2021-03-30 18:39] LABS: Add Urine Microscopic? NO; Charge for UA Resulting for Rev
[2021-03-30 18:49] LABS: HCG, Serum Qual Negative (Negative)
[2021-03-30 18:50] LABS: Partial Thromboplastin Time 29.8 SECONDS (23.9-36.7)
[2021-03-30 18:56] LABS: Bilirubin Urine Neg (Negative); Blood Urine Neg (Negative); Glucose Urine UA Norm (Normal); Ketones Urine Negative (Negative); Leukocyte Esterase Urine Negative (Negative); Nitrate Urine Negative (Negative); Protein Urine Neg (Negative); Urine Appearance Clear (CLEAR); Urine Color Yellow (Yellow); Urobilinogen Urine Norm (Negative); pH Urine 6.5 (5-7)
[2021-03-30 19:02] LABS: Influenza A by IFA Negative (Negative); Influenza B by IFA Negative (Negative); SARS Covid-2 Antigen Negative (Negative)
--- NOTE | 2021-03-30 21:10 | PC.NURSE ---
Pt able to drink water with nausea and vomiting.
[2021-03-31 14:12] LABS: Coronavirus Test Green County Not Detected
--- NOTE | 2021-03-31 17:42 | PC.NURSE ---
Patient notified of negative COVID test results
== END 2021-03-30 21:25 | disposition home or self-care (01) ==
PROVIDERS: Family Medicine; Emergency Provider Emergency Medicine; PCP Family Medicine
DX: R11.2 Nausea with vomiting, unspecified (principal); R19.7 Diarrhea, unspecified; R05.9 Cough, unspecified; R53.1 Weakness; Z20.822 Contact with and (suspected) exposure to COVID-19
CPT/HCPCS: 71045; 80053; 81003; 84703; 85025; 85610; 85730; 87426; 87635; 87804; 96361; 96374; 99284; J2405; J7030

== ENCOUNTER → 2021-05-04 08:43 | Outpatient (BNVA) | payer MEDICAID, SELFPAY | PROVIDERS: PCP Family Medicine; Visit Provider Psychiatry & Neurology Psychiatry | DX: F43.12 Post-traumatic stress disorder, chronic (principal); F60.3 Borderline personality disorder | CPT/HCPCS: 99204 ==

== ENCOUNTER → 2023-01-17 11:29 | Outpatient (BNVA) | payer MEDICAID, SELFPAY | PROVIDERS: PCP Family Medicine; Visit Provider Registered Nurse Neonatal Intensive Care | DX: R05.9 Cough, unspecified (principal); Z20.822 Contact with and (suspected) exposure to COVID-19 | CPT/HCPCS: 87426 ==